=== PATIENT | male | born 1960 | race Caucasian/White ===

== ENCOUNTER → 2017-07-09 | Outpatient (CLI) | payer BC | LOC: COL.RAD 07:46 | DX: C32.9 Malignant neoplasm of larynx, unspecified (principal); J43.9 Emphysema, unspecified; R91.8 Other nonspecific abnormal finding of lung field | CPT/HCPCS: Q9967 ==

== ENCOUNTER 2017-09-26 14:54 | Outpatient (RCR) | payer BC | END 2017-12-25 | disposition home or self-care (01) | LOC: WSST | DX: C32.9 Malignant neoplasm of larynx, unspecified (principal) ==

== ENCOUNTER → 2017-10-02 | Outpatient (CLI) | payer BC | LOC: COL.RAD 14:51 | DX: C32.9 Malignant neoplasm of larynx, unspecified (principal); Z80.9 Family history of malignant neoplasm, unspecified; Z87.891 Personal history of nicotine dependence ==

== ENCOUNTER → 2018-08-20 | Outpatient (CLI) | payer BC | LOC: COL.RAD 14:30 | DX: R13.12 Dysphagia, oropharyngeal phase (principal) ==

== ENCOUNTER 2020-02-05 15:29 | Emergency (ER) | payer BC ==
[~2020-02-05] VITALS: Ht 180.3 cm; Wt 62.7 kg
[~2020-02-05 15:29] MED LIST: AMOXICILLIN 8751 TAB PO; CLEVER CHOICE1 EA20 MC; PROVENTIL0.09 MG/A1 IH; ZITHROMAX Z PA250 MG PO
[2020-02-05 15:35] VITALS: TEMP 98.4
[2020-02-05 16:27] LABS: BASO % 0.4 % (0.0-2.0); EOS # 0.1 (0.0-0.7); EOS % 0.7 % (0-4.0); GRAN # 6.9 (1.4-6.5); GRAN % 80.6 % (42.2-75.2); HEMATOCRIT 40.4 % (42.0-52.0); HEMOGLOBIN 13.7 g/dl (13.5-18.0); LYMPH # 0.6 (1.2-3.4); LYMPH % 7.5 % (20.0-51.0); MEAN CELL VOLUME 89 fl (80.0-100.0); MEAN CORPUSCULAR HEMOGLOBIN 30 pg (27.0-31.0); MEAN CORPUSCULAR HGB CONC 34 g/dl (33.0-37.0); MEAN PLATELET VOLUME 9.3 fl (7.4-10.4); MONO # 0.9 (0.1-0.6); MONO % 10.1 % (1.7-9.3); PLATELET COUNT 277 K/mm3 (130-400); RED BLOOD COUNT 4.56 M/mm3 (4.20-5.60); REDCELL DISTRIBUTION WIDTH-CV 13.2 % (11.5-14.5)
[2020-02-05 16:41] LABS: INR 1.2 (0.8-3.0); PROTHROMBIN TIME 13.5 SECONDS (9.7-12.8)
[2020-02-05 16:43] LABS: ALANINE AMINOTRANSFERASE 56 U/L (4-49); ALBUMIN 4.3 gm/dL (3.5-5.0); ALKALINE PHOSPHATASE 137 U/L (50-136); ANION GAP 7 mmol/L (7-16); AST,SGOT 74 U/L (15-37); BILIRUBIN,TOTAL 1.1 mg/dL (0.0-1.0); BLOOD UREA NITROGEN 19 mg/dL (9-20); CALCIUM 9.6 mg/dL (8.4-10.2); CARBON DIOXIDE 26 mmol/L (22-30); CHLORIDE 102 mmol/L (98-107); CREATININE, serum 1.21 (0.66-1.25); GLUCOSE 112 mg/dL (74-106); POTASSIUM 4.2 mmol/L (3.4-5.0); SODIUM 135 mmol/L (137-145); TOTAL PROTEIN 7.8 gm/dL (6.4-8.2)
[2020-02-05 16:43] LABS: PARTIAL THROMBOPLASTIN TIME 30.4 SECONDS (26.0-37.0)
[2020-02-05 16:55] LABS: TROPONIN-I < 0.012 ng/mL (0.000-0.035)
[2020-02-05 17:37] VITALS: BP 141/86; PULSE 94
== END 2020-02-05 17:50 | disposition short-term general hospital (02) ==
LOC: COL.ER 15:29
PROVIDERS: Emergency Medicine
DX: R07.9 Chest pain, unspecified (principal); R06.00 Dyspnea, unspecified; R94.31 Abnormal electrocardiogram [ECG] [EKG]; I25.10 Atherosclerotic heart disease of native coronary artery without angina pectoris; J44.9 Chronic obstructive pulmonary disease, unspecified; Z79.899 Other long term (current) drug therapy; Z87.891 Personal history of nicotine dependence; Z95.5 Presence of coronary angioplasty implant and graft; Z95.1 Presence of aortocoronary bypass graft; Z11.59 Encounter for screening for other viral diseases
CPT/HCPCS: J1644

== ENCOUNTER 2020-11-02 07:28 | Day surgery (SDC) | payer BC ==
[~2020-11-02] VITALS: Ht 180.3 cm; Wt 64.1 kg
[2020-11-02] VITALS (456 sets, daily range): BP systolic 117–144; BP diastolic 66–103; PULSE 12–62; TEMP 97.5–97.8; O2SAT 83–100
[2020-11-02] MEDS ORDERED: TOPROL XL 25MG25 MG PO (07:59)
[2020-11-02] MEDS ORDERED: ASPIRIN E.C. 8181 MG PO (08:00)
[2020-11-02 08:46] LABS: HEMATOCRIT 40.2 % (42.0-52.0); HEMOGLOBIN 13.6 g/dl (13.5-18.0); MEAN CELL VOLUME 88 fl (80.0-100.0); MEAN CORPUSCULAR HEMOGLOBIN 30 pg (27.0-31.0); MEAN CORPUSCULAR HGB CONC 34 g/dl (33.0-37.0); MEAN PLATELET VOLUME 9.9 fl (7.4-10.4); PLATELET COUNT 235 K/mm3 (130-400); RED BLOOD COUNT 4.57 M/mm3 (4.20-5.60); REDCELL DISTRIBUTION WIDTH-CV 13.9 % (11.5-14.5)
[2020-11-02 08:49] LABS: INR 1.1 (0.8-3.0)
[2020-11-02 08:52] LABS: PARTIAL THROMBOPLASTIN TIME 32.5 SECONDS (26.0-37.0)
[2020-11-02 08:53] LABS: CALCIUM 9.1 mg/dL (8.4-10.2); CREATININE, serum 1.16 (0.66-1.25); POTASSIUM 4.4 mmol/L (3.4-5.0)
[2020-11-02] MEDS ORDERED: NITROSTAT0.4 MG/TAB SL (08:56)
[2020-11-03] VITALS (402 sets, daily range): BP systolic 91–116; BP diastolic 53–73; PULSE 51–59; TEMP 91.1–98; O2SAT 97–100
[2020-11-03 05:44] LABS: BASO % 0.7 % (0.0-2.0); EOS # 0.2 (0.0-0.7); GRAN # 4.1 (1.4-6.5); GRAN % 73.9 % (42.2-75.2); HEMATOCRIT 41.4 % (42.0-52.0); LYMPH # 0.8 (1.2-3.4); LYMPH % 13.4 % (20.0-51.0); MEAN CELL VOLUME 89 fl (80.0-100.0); MEAN CORPUSCULAR HEMOGLOBIN 30 pg (27.0-31.0); MEAN CORPUSCULAR HGB CONC 34 g/dl (33.0-37.0); MEAN PLATELET VOLUME 9.9 fl (7.4-10.4); MONO # 0.4 (0.1-0.6); MONO % 7.9 % (1.7-9.3); PLATELET COUNT 248 K/mm3 (130-400); RED BLOOD COUNT 4.65 M/mm3 (4.20-5.60)
[2020-11-03 05:58] LABS: CREATININE, serum 1.11 (0.66-1.25); POTASSIUM 4.4 mmol/L (3.4-5.0)
[2020-11-03] MEDS ORDERED: BRILINTA90 MG PO (11:28)
[2020-11-03] MEDS ORDERED: LIPITOR 80MG80 MG PO (11:28)
== END 2020-11-03 12:36 | disposition home or self-care (01) ==
LOC: COL.CAR 07:28 → ICU 12:57 → COL.CAR 11-03 12:36
PROVIDERS: Internal Medicine Cardiovascular Disease
DX: I25.110 Atherosclerotic heart disease of native coronary artery with unstable angina pectoris (principal); I25.2 Old myocardial infarction; I73.9 Peripheral vascular disease, unspecified; J43.9 Emphysema, unspecified; E78.5 Hyperlipidemia, unspecified; I12.9 Hypertensive chronic kidney disease with stage 1 through stage 4 chronic kidney disease, or unspecified chronic kidney disease; G47.33 Obstructive sleep apnea (adult) (pediatric); N18.9 Chronic kidney disease, unspecified; Z85.818 Personal history of malignant neoplasm of other sites of lip, oral cavity, and pharynx; Z95.5 Presence of coronary angioplasty implant and graft; Z87.891 Personal history of nicotine dependence; Z83.3 Family history of diabetes mellitus
CPT/HCPCS: OP; C9600; J0583; J1644; J2250; J3010; Q9967

== ENCOUNTER → 2021-01-04 | Outpatient (CLI) | payer BC ==
[~2021-01-04] MED LIST changes: +00186-0370-20 IH; +ASPIRIN E.C. 8181 MG PO; +BRILINTA90 MG PO; +IMDUR 30MG30 MG/TAB PO; +LIPITOR 80MG80 MG PO; +NITROSTAT0.4 MG/TAB SL; +NORVASC 5MG5 MG/TAB PO; +PLAVIX 75MG TAB75 MG PO; +PROTONIX 40MG T40 MG PO; +SYNTHROID0.05 MG/TA PO; +TOPROL XL 25MG25 MG PO
== END ==
LOC: COL.RAD 07:47
DX: J43.9 Emphysema, unspecified (principal); C13.9 Malignant neoplasm of hypopharynx, unspecified; R91.8 Other nonspecific abnormal finding of lung field; Z95.5 Presence of coronary angioplasty implant and graft
CPT/HCPCS: Q9967

== ENCOUNTER 2021-05-13 07:09 | Day surgery (SDC) | payer BC ==
[~2021-05-13] VITALS: Ht 177.8 cm; Wt 65.0 kg
[~2021-05-13 07:09] MED LIST changes: -00186-0370-20 IH; -IMDUR 30MG30 MG/TAB PO; -NORVASC 5MG5 MG/TAB PO; -PLAVIX 75MG TAB75 MG PO; -PROTONIX 40MG T40 MG PO; -SYNTHROID0.05 MG/TA PO
[2021-05-13] MEDS ORDERED: PLAVIX 75MG TAB75 MG PO (07:24)
[2021-05-13] MEDS ORDERED: IMDUR 30MG30 MG/TAB PO (07:25)
[2021-05-13] MEDS ORDERED: NORVASC 5MG5 MG/TAB PO (07:25)
[2021-05-13] MEDS ORDERED: NITROSTAT0.4 MG/TAB SL (07:26)
[2021-05-13] MEDS ORDERED: PROTONIX 40MG T40 MG PO (07:27)
[2021-05-13] MEDS ORDERED: 00186-0370-20 IH (07:27)
[2021-05-13] MEDS ORDERED: SYNTHROID0.05 MG/TA PO (07:51)
[2021-05-13 07:53] VITALS: BP 115/69; PULSE 59; TEMP 98.3
[2021-05-13 09:00] VITALS: BP 108/73; PULSE 59; TEMP 97.3
--- NOTE | 2021-05-13 09:00 | NUR ---
PATIENT RETURNED TO BAY 4 ACCOMPANIED BY RANDI RN. PATIENT AMBULATED FROM CART TO CHAIR WITH 1 ASSIST. SLOW STEADY GAIT. IN ROOM. MONITORS APPLIED. VSS ON ROOM AIR. PATIENT STATES HE IS SLEEPY. PATIENT TALKS WITH . PATIENT GIVEN MUFFIN AND PEPSI. PATIENT SITS UP IN CHAIR.
[2021-05-13 09:15] VITALS: BP 114/81; PULSE 60
[2021-05-13 09:30] VITALS: BP 126/76; PULSE 59
--- NOTE | 2021-05-13 09:30 | NUR ---
VSS ON ROOM AIR. PATIENT DENIES DISCOMFORT. DR IN AND TALKS WITH PATIENT.' [id number] DISCHARGE INSTRUCTIONS GIVEN VERBAL AND DISCHARGE PACKET GIVEN TO PATIENT. QUESTIONS ANSWERED AND PATIENT VOICED UNDERSTANDING. PATIENT CHANGES INTO STREET CLOTHES. [id number] PATIENT DISCHARGED PER WHEEL CHAIR ACCOMPANIED BY AMB RN TO PRIVATE VECHILE DRIVEN BY FAMILY.
== END 2021-05-13 09:45 | disposition home or self-care (01) ==
LOC: SDCO 07:09
DX: K22.2 Esophageal obstruction (principal); N18.9 Chronic kidney disease, unspecified; E78.5 Hyperlipidemia, unspecified; J44.9 Chronic obstructive pulmonary disease, unspecified; K21.9 Gastro-esophageal reflux disease without esophagitis; I13.10 Hypertensive heart and chronic kidney disease without heart failure, with stage 1 through stage 4 chronic kidney disease, or unspecified chronic kidney disease; I25.10 Atherosclerotic heart disease of native coronary artery without angina pectoris; I73.9 Peripheral vascular disease, unspecified; Z20.822 Contact with and (suspected) exposure to COVID-19; Z79.82 Long term (current) use of aspirin; Z79.02 Long term (current) use of antithrombotics/antiplatelets; Z95.1 Presence of aortocoronary bypass graft; Z87.891 Personal history of nicotine dependence; Z85.21 Personal history of malignant neoplasm of larynx
CPT/HCPCS: C1726; J2704; J7120

== ENCOUNTER 2021-06-11 14:20 | Emergency (ER) | payer BC ==
[~2021-06-11] VITALS: Ht 177.8 cm; Wt 59.1 kg
[~2021-06-11 14:20] MED LIST changes: +00186-0370-20 IH; +IMDUR 30MG30 MG/TAB PO; +NORVASC 5MG5 MG/TAB PO; +PLAVIX 75MG TAB75 MG PO; +PROTONIX 40MG T40 MG PO; +SYNTHROID0.05 MG/TA PO
[2021-06-11 15:09] LABS: BASO % 0.3 % (0.0-2.0); EOS # 0.3 (0.0-0.7); EOS % 2.6 % (0-4.0); GRAN # 9.1 (1.4-6.5); GRAN % 82.9 % (42.2-75.2); HEMATOCRIT 39.7 % (42.0-52.0); HEMOGLOBIN 13.1 g/dl (13.5-18.0); LYMPH # 0.6 (1.2-3.4); LYMPH % 5.4 % (20.0-51.0); MEAN CELL VOLUME 90 fl (80.0-100.0); MEAN CORPUSCULAR HEMOGLOBIN 30 pg (27.0-31.0); MEAN CORPUSCULAR HGB CONC 33 g/dl (33.0-37.0); MEAN PLATELET VOLUME 9.8 fl (7.4-10.4); MONO # 0.9 (0.1-0.6); MONO % 8.4 % (1.7-9.3); PLATELET COUNT 273 K/mm3 (130-400); RED BLOOD COUNT 4.39 M/mm3 (4.20-5.60); REDCELL DISTRIBUTION WIDTH-CV 14.5 % (11.5-14.5)
[2021-06-11 15:11] LABS: INR 1.3 (0.8-3.0); PROTHROMBIN TIME 14.4 SECONDS (9.7-12.8)
[2021-06-11 15:23] LABS: ALANINE AMINOTRANSFERASE 39 U/L (4-49); ALBUMIN 4.2 gm/dL (3.5-5.0); ALKALINE PHOSPHATASE 149 U/L (50-136); ANION GAP 10 mmol/L (7-16); AST,SGOT 38 U/L (15-37); BILIRUBIN,TOTAL 1.5 mg/dL (0.0-1.0); BLOOD UREA NITROGEN 15 mg/dL (9-20); CALCIUM 9.3 mg/dL (8.4-10.2); CARBON DIOXIDE 29 mmol/L (22-30); CHLORIDE 98 mmol/L (98-107); CREATININE, serum 1.06 (0.66-1.25); GLUCOSE 143 mg/dL (74-106); LIPASE 18 U/L (23-300); POTASSIUM 3.9 mmol/L (3.4-5.0); SODIUM 137 mmol/L (137-145); TOTAL PROTEIN 7.6 gm/dL (6.4-8.2)
[2021-06-11 15:42] LABS: C-REACTIVE PROTEIN 13.4 mg/dL (0.0-0.9); TROPONIN-I < 0.012 ng/mL (0.000-0.035)
[2021-06-11] MEDS ORDERED: ZITHROMAX Z PA250 MG PO (17:51)
[2021-06-11] MEDS ORDERED: AMOXICILLIN 8751 TAB PO (17:51)
[2021-06-11 18:16] VITALS: BP 111/66; PULSE 74; TEMP 98.6
== END 2021-06-11 18:23 | disposition home or self-care (01) ==
LOC: COL.ER 14:20
PROVIDERS: Emergency Medicine
DX: J18.1 Lobar pneumonia, unspecified organism (principal); I49.3 Ventricular premature depolarization; I25.10 Atherosclerotic heart disease of native coronary artery without angina pectoris; J44.9 Chronic obstructive pulmonary disease, unspecified; I10 Essential (primary) hypertension; Z88.8 Allergy status to other drugs, medicaments and biological substances; Z79.82 Long term (current) use of aspirin; Z79.02 Long term (current) use of antithrombotics/antiplatelets; Z79.899 Other long term (current) drug therapy; Z79.51 Long term (current) use of inhaled steroids; Z20.822 Contact with and (suspected) exposure to COVID-19
CPT/HCPCS: J0696; J1885